=== PATIENT | male | born 1945 | race Caucasian/White ===

== ENCOUNTER 2019-08-10 10:23 | Emergency (ER) | payer OTHER ==
[2019-08-10] MEDS ORDERED: LIDOCAINE 1% MPF 5 ML VIAL ONE (10:53)
--- NOTE | 2019-08-10 12:18 | ER ---
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 Pt reports taking Xarelto. Bandage blood soaked at this time. Transition of care: patient was not received from another setting of care. Complicating Factors: There are no complicating factors for this patient. Onset of symptoms was August 10, 2019. Risk Assessment: Do you want to hurt yourself or someone else? Patient reports no desire to harm self or others. Initial Sepsis Screen: Does the patient meet any 2 criteria? No. Patient's initial sepsis screen is negative. Care prior to arrival: None. 10:29 Method Of Arrival: Ambulatory sr5 10:29 Acuity: TYLER 4 sr5 Triage Assessment: 10:29 General: Appears in no apparent distress. Behavior is calm, cooperative. Pain: sr5 Complains of pain in dorsal aspect of distal phalanx of left ring finger Pain currently is 2 out of 10 on a pain scale. Neuro: No deficits noted. Cardiovascular: No deficits noted. Respiratory: No deficits noted. 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 Historical: - Allergies: 11:03 Cipro; sg - PSHx: 11:03 Right Bursa Sac Removal; sg - Immunization history:: Last tetanus immunization: up to date. - Social history:: Smoking status: Patient/guardian denies using tobacco, the patient reports quitting approximately 30 years ago. - Ebola Screening: : Patient negative for fever greater than or equal to 101.5 degrees Fahrenheit, and additional compatible Ebola Virus Disease symptoms. Screenin:50 Abuse screen: Denies threats or abuse. Denies injuries from another. Nutritional sg screening: No deficits noted. Tuberculosis screening: No symptoms or risk factors identified. Never had TB. Fall Risk None identified. Assessment: 10:54 General: Appears in no apparent distress. comfortable, well groomed, well developed, sg well nourished, Behavior is calm, cooperative, appropriate for age. Pain: Denies pain. Neuro: Level of Consciousness is awake, alert, obeys commands, Oriented to person, place, time, Cabinet Abrasive Sandblaster are equal bilaterally Moves all extremities. Full function Gait is steady, Speech is normal, Facial symmetry appears normal, Pupils are PERRLA. Cardiovascular: Heart tones S1 S2 present Patient's skin is warm and dry. Chest pain is denied. Respiratory: Airway is patent Respiratory effort is even, unlabored, Respiratory pattern is regular, symmetrical, Denies cough, shortness of breath. GI: Abdomen is round non-distended. : No signs and/or symptoms were reported regarding the genitourinary system. EENT: No signs and/or symptoms were reported regarding the EENT system. Derm: Skin is pink, warm \T\ dry. Musculoskeletal: Circulation, motion, and sensation intact. Range of motion: intact in all extremities. Injury Description: Avulsion sustained to left ring fingernail is partial was sustained 30-60 minutes ago. Vital Signs: 10:29 Pulse 54; Resp 20; Temp 97.3; Pulse Ox 95% ; Weight 137.89 kg (R); Height 6 ft. 2 in. sr5 (187.96 cm); Pain 2/10; 10:32 BP 140 / 82; sr5 11:40 BP 132 / 77; Pulse 60; Resp 19; Temp 97.6(TE); Pulse Ox 96% on R/A; Pain 0/10; sg 10:29 Body Mass Index 39.03 (137.89 kg, 187.96 cm) sr5 ED Course: 10:25 Patient arrived in ED. as 10:29 Arm band placed on. sr5 10:31 Triage completed. sr5 10:33 Yonas Rodriguez NP is PHCP. pm1 10:33 Bebo Tsai MD is Attending Physician. pm1 10:40 Patient has correct armband on for positive identification. Bed in low position. Call sg light in reach. Side rails up X2. threat monitoring analyst on. Pulse ox on. NIBP on. Warm blanket given. Head of bed elevated. Elevated left arm. 10:54 Jerome Gentile RN is Primary Nurse. sg 11:45 Dressings: COBAND applied to aluminium finger splint. Aluminum finger splint applied to sg left ring finger. 12:50 Assist provider with laceration repair Set up tray. Dressed with Patient tolerated well.5 12:50 Patient did not have IV access during this emergency room visit. sg Administered Medications: No medications were administered Outcome: 12:17 Discharge ordered by MD. pm1 12:50 Discharged to home ambulatory, with family. sg 12:50 Condition: good 12:50 Discharge instructions given to patient, family, Instructed on discharge instructions, follow up and referral plans. medication usage, safety practices, wound care, Demonstrated understanding of instructions, follow-up care, medications, wound care, Prescriptions given X 1. 12:51 Patient left the ED. Signatures: Jerome Gentile RN RN Sheila Dixon Patrick, NP GANG SAW OPERATOR pm1 Tu Jackman RN RN [facility] Urvashi Griggs [facility] Corrections: (The following items were deleted from the chart) 10:58 10:57 BP 164 / 75; Pulse 77bpm; Resp 18bpm; Pulse Ox 95% RA; sg 11:03 10:32 Allergies: No Known Allergies; 5
--- NOTE | 2019-08-10 12:19 | EDPHYS ---
Physician Documentation [facility] Name: Manjit Levine Age: 74 yrs Sex: Male : 1945 Arrival Date: 08/10/2019 Time: 10:25 Bed 8 Private MD: ED Physician Bebo Tsai HPI: 08/10 10:39 This 74 yrs old Male presents to ER via Ambulatory with complaints of pm1 Laceration - Finger. 10:39 The patient or guardian reports a laceration, avulsion. The complaints affect the left pm1 hand and dorsal aspect of distal phalanx of left ring finger. 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 Onset: The symptoms/episode began/occurred just prior to arrival. Modifying factors: The symptoms are alleviated by nothing, the symptoms are aggravated by nothing. Associated signs and symptoms: Pertinent negatives: cyanosis distally, decreased sensation distally, numbness distally, tingling distally. Severity of symptoms: in the emergency department the symptoms are unchanged. The patient has not experienced similar symptoms in the past. The patient has not recently seen a physician. Patient takes blood thinners. Historical: - Allergies: 11:03 Cipro; sg - PSHx: 11:03 Right Bursa Sac Removal; sg - Immunization history:: Last tetanus immunization: up to date. - Social history:: Smoking status: Patient/guardian denies using tobacco, the patient reports quitting approximately 30 years ago. - Ebola Screening: : Patient negative for fever greater than or equal to 101.5 degrees Fahrenheit, and additional compatible Ebola Virus Disease symptoms. ROS: 10:39 Constitutional: Negative for fever, chills, and weight loss. pm1 10:39 MS/extremity: Positive for laceration, pain, of the dorsal aspect of distal phalanx of left ring finger, Negative for decreased range of motion, deformity. 10:39 Skin: Positive for laceration(s), of the dorsal aspect of distal phalanx of left ring finger. 10:39 Neuro: Negative for dizziness, headache. 10:39 All other systems are negative. Exam: 10:39 Constitutional: This is a well developed, well nourished patient who is awake, alert, pm1 and in no acute distress. Head/Face: Normocephalic, atraumatic. 10:39 Musculoskeletal/extremity: Extremities: grossly normal except: noted in the dorsal aspect of distal phalanx of left ring finger: avulsion including medial aspect of nail. 10:39 Skin: Appearance: normal except for affected area, injury, avulsion(s), of the dorsal aspect of distal phalanx of left ring finger. 10:39 Neuro: Orientation: is normal, Motor: is normal, moves all fours, Sensation: is normal, no obvious gross deficits. Vital Signs: 10:29 Pulse 54; Resp 20; Temp 97.3; Pulse Ox 95% ; Weight 137.89 kg (R); Height 6 ft. 2 in. sr5 (187.96 cm); Pain 2/10; 10:32 BP 140 / 82; sr5 11:40 BP 132 / 77; Pulse 60; Resp 19; Temp 97.6(TE); Pulse Ox 96% on R/A; Pain 0/10; sg 10:29 Body Mass Index 39.03 (137.89 kg, 187.96 cm) sr5 Laceration: 18:08 Wound Repair of 1cm ( 0.4in ) subcutaneous laceration to dorsal aspect of distal pm1 phalanx of left ring finger. avulsion. Distal neuro/vascular/tendon intact. Wound prep: Extensive cleansing with hibiclenz by me, Wound irrigation with saline by me, Wound explored extensively, Copious irrigation. Skin closed using surgicel. Dressed with bleeding stopped with surgicel and pressure dressing with 4x4 and coban. Patient tolerated well. MDM: 10:33 Patient medically screened. pm1 12:16 Data reviewed: vital signs. Data interpreted: Pulse oximetry: on room air is 95 %. pm1 Interpretation: normal. Counseling: I had a detailed discussion with the patient and/or guardian regarding: the historical points, exam findings, and any diagnostic results supporting the discharge/admit diagnosis, the need for outpatient follow up, to return to the emergency department if symptoms worsen or persist or if there are any questions or concerns that arise at home. Administered Medications: No medications were administered Disposition: 19:51 Co-signature as Attending Physician, Bebo Tsai MD I agree with the assessment and darrick plan of care. Disposition: 08/10/19 12:17 Discharged to Home. Impression: Laceration without foreign body of left ring finger with damage to nail. - Condition is Stable. - Discharge Instructions: Laceration Care, Adult. - Prescriptions for Keflex 500 mg Oral Capsule - take 1 capsule by ORAL route every 12 hours for 10 days; 20 capsule. - Medication Reconciliation Form, Thank You Letter, Antibiotic Education, Prescription Opioid Use form. - Follow up: Emergency Department; When: As needed; Reason: Worsening of condition. Follow up: Private Physician; When: 2 - 3 days; Reason: Recheck today's complaints, Continuance of care, Re-evaluation by your physician. - Problem is new. - Symptoms have improved. Signatures: Jerome Gentile RN RN sg Bebo Tsai MD MD cha Marinas, Patrick, CONSERVATION POLICY ANALYST CONSERVATION POLICY ANALYST pm1 ReseckTu rausch RN RN sr5 Corrections: (The following items were deleted from the chart) 11:03 10:32 Allergies: No Known Allergies; sr5 sg 12:51 12:17 08/10/2019 12:17 Discharged to Home. Impression: Laceration without foreign body sg of left ring finger with damage to nail. Condition is Stable. Forms are Medication Reconciliation Form, Thank You Letter, Antibiotic Education, Prescription Opioid Use. Follow up: Emergency Department; When: As needed; Reason: Worsening of condition. Follow up: Private Physician; When: 2 - 3 days; Reason: Recheck today's complaints, Continuance of care, Re-evaluation by your physician. Problem is new. Symptoms have improved. pm1
[2019-08-10 12:56] VITALS: TEMP 97.3; O2SAT 95
[2019-08-10 12:57] VITALS: BP 140/82
== END 2019-08-10 12:51 | disposition home or self-care (01) ==
LOC: ER 10:23
PROC: 0JQK0ZZ Repair Left Hand Subcutaneous Tissue and Fascia, Open Approach (ICD-10-PCS; principal; 2019-08-10)
DX: S61.315A Laceration without foreign body of left ring finger with damage to nail, initial encounter (principal); W26.8XXA Contact with other sharp object(s), not elsewhere classified, initial encounter; Y93.89 Activity, other specified; Y92.009 Unspecified place in unspecified non-institutional (private) residence as the place of occurrence of the external cause; Z88.1 Allergy status to other antibiotic agents
CPT/HCPCS: 99284